=== PATIENT | male | born 1955 | race Caucasian/White ===

== ENCOUNTER → 2018-12-29 | Day surgery (SDC) | payer OTHER ==
[~2018-12-29] MED LIST: ASPIR 8181 MG PO; ATORVASTATIN CA20 MG PO; FENOFIBRATE145 MG PO; FENTANYL CITRATE/PF 100MCG/2 ML INJ ONE; GLIMEPIRIDE2 MG PO; GLUCAGON FOR INJ 1 MG VIAL ONE; HYOSCYAMINE SULFATE 0.5 MG/ML INJ ONE; JANUVIA100 MG PO; LISINOPRIL10 MG PO; METFORMIN HCL500 MG PO; MIDAZOLAM HCL 2 MG/2 ML VIAL ONE; PHENYLEPHRINE HCL 1% 10 MG/ML VIAL ONE; PROPOFOL IV EMULSION 10 MG/ML 50 ML VIAL ONE; TAMSULOSIN HCL0.4 MG PO
--- OUTSIDE RECORDS SUMMARY | 2018-12-29 06:47 | XMS REPORT | Continuity of Care Document ---
Author Author Franklyn ralph Organization Interface Address Unknown Phone Unavailable Problems Problem Status Onset Date Classification Date Reported Comments Source R52 - PAIN, UNSPECIFIED Active 03/08/2018 [facility] Medications Medication Details Route Status Patient Instructions Ordering Provider Order Date Source Allergies, Adverse Reactions, Alerts Substance Category Reaction Severity Reaction type Status Date Reported Comments Source Immunizations Immunization Date Given Site Status Last Updated Comments Source Results Order Name Results Value Reference Range Date Interpretation Comments Source Prostate wo contrast MRI Prostate wo contrast MRI Test patient 03/08/2018 - - Read by: Rich Lopez MD Dictated Date/time: 03/08/18 15:26 Electronically Signed by: Rich Lopez MD 03/08/18 15:32 FINAL REPORT [facility] Prostate wo contrast MRI Prostate wo contrast MRI No contrast was administered. EXAM: MRI pelvis/prostate INDICATION: test patient. Recent urinary tract infection; urinary hesitation. COMPARISON: None. TECHNIQUE: TECHNIQUE: Multiplanar, multisequence acquisition of the prostate pre and post intravenous contrast, per the dynamic prostate protocol. FINDINGS: Image quality: Adequate Prostate: Size 4.1 x 3.4 x 4.3 cm, 30 mL. Transition and central zone: Several circumscribed nodules with heterogeneous T2 signal likely reflect glandular and stromal hyperplasia. A 1.5 cm nodule with high T2 and bandlike low T2 signal centrally is present at midline near the verumontanum. Peripheral Zone: A well marginated 0.6 cm nodule with very high T2 signal and mildly increased T1 signal is present at the mid gland. Scattered linear areas of low T2 signal are seen throughout the peripheral zone without appreciable restriction diffusion. Seminal vesicles: Intact. Extracapsular extension: None. Bladder: Intact. Lymph nodes: No bulky adenopathy. Bones: Intact marrow signal IMPRESSION: 1.5 cm and 0.6 cm nodules centrally in the prostate may reflect cystic lesions including utricle cyst, Mullerian duct cyst, ejaculatory duct cyst, or retention cyst; neoplasm is not completely excluded. Correlate with PSA. Urology consultation is advised. SL: [facility] 03/08/2018 - - Read by: Rich Lopez MD Dictated Date/time: 03/10/18 08:46 Electronically Signed by: Rich Lopez MD 03/10/18 08:53 FINAL REPORT - - Read by: Rich Lopez MD Dictated Date/time: 03/09/18 13:28 Electronically Signed by: Rich Lopez MD 03/09/18 14:00 FINAL REPORT [facility] Vital Signs Vital Sign Value Date Comments Source Encounters Location Location Details Encounter Type Encounter Number Reason For Visit Attending Provider ADM Date DC Date Status Source Procedures Procedure Code Date Perfomer Comments Source
[2018-12-29 11:15] VITALS: BP 129/75
--- NOTE | 2018-12-29 11:52 | Operative Report ---
DATE OF PROCEDURE: December 29, 2018 REFERRING PHYSICIAN: Dr. Nathaniel Ryan PROCEDURES PERFORMED 1. Esophagogastroduodenoscopy with biopsies. 2. Colonoscopy with polypectomy. INDICATIONS FOR EGD: Dyspepsia. INDICATIONS FOR COLONOSCOPY: Colorectal cancer screening. MEDICATION: Patient was done under MAC. Please see anesthesiologist's note. PROCEDURE: With the patient in the left lateral decubitus position, the flexible fiberoptic Olympus gastroscope was introduced into the esophagus under direct visualization without any difficulty. The epiglottis on the way in appeared somewhat granular. The scope was then advanced into the esophagus, and a minute nodule was noted just below the upper esophageal sphincter, and that was removed per the cold biopsy forceps. There was some patchy erythema noted in the distal esophagus. The GE junction was somewhat nodular and friable, and that was biopsied. The scope was then advanced with ease into the stomach, and mucosa overlying the antrum and the body revealed some patchy erythema and mild to moderate edema, and biopsies were obtained and sent to stain for H. pylori. Pylorus appeared to be of normal contour and shape. It was intubated with ease, and the scope was advanced all the way to the 2nd portion of the duodenum. The scope was then withdrawn slowly. Mucosa overlying the proximal 2nd portion and the duodenal bulb grossly appeared to be within normal limits. Biopsies were obtained to rule out sprue. The scope was then withdrawn back into the stomach and retroflexed. A minute polyp was noted in the fundus, and that was removed per the cold biopsy forceps. The scope was then straightened out. It was subsequently withdrawn. Patient tolerated the procedure well. IMPRESSION 1. Epiglottis somewhat granular. 2. Minute nodule just below the upper esophageal sphincter removed per cold biopsy forceps. 3. Distal esophagitis. 4. The gastroesophageal junction was somewhat nodular and friable, and that was biopsied. 5. Gastritis, biopsied. Biopsies sent to stain for H. pylori. 6. Minute polyp, fundus, removed per cold biopsy forceps. 7. Rule out sprue. PLAN: Follow up histology. Initiate Protonix 40 mg 1 p.o. q.a.m. a.c. Will obtain an ENT opinion regarding the epiglottis. The patient was then turned around. After adequate lubrication of the anal canal, a flexible fiberoptic Olympus colonoscope was inserted into the rectum with ease and advanced all the way to the cecum. It was then withdrawn slowly. The mucosa overlying the cecum, ascending colon and transverse colon appeared to be within normal limits. A large, sessile, polypoid lesion was noted in the proximal descending colon. It was partially resected per snare electrocautery, and the it was also hemoclipped and tattooed. Some diverticular disease was noted in the sigmoid colon. One polyp was snared from the rectum. The scope was then retroflexed into the distal rectum, and small internal hemorrhoids were noted, none of which was actively bleeding. The scope was then straightened out. It was subsequently withdrawn. Patient tolerated the procedure well. IMPRESSION 1. Large, sessile, polypoid mass, proximal descending colon, partially resected per snare electrocautery, tattooed and hemoclipped. 2. Diverticulosis. 3. Rectal polyp, snared. 4. Small internal hemorrhoids, none actively bleeding. PLAN: Follow up histology. Patient might benefit from a CT scan of the abdomen. Timing of followup colonoscopy pending pathology report. Job#: [id number] cc:NATHANIEL RYAN MD
== END | disposition home or self-care (01) ==
LOC: OR 06:44
PROVIDERS: ATTEND Internal Medicine Gastroenterology
DX: K62.5 Hemorrhage of anus and rectum (principal); D12.4 Benign neoplasm of descending colon; K62.1 Rectal polyp; K31.7 Polyp of stomach and duodenum; K29.50 Unspecified chronic gastritis without bleeding; K29.80 Duodenitis without bleeding; K22.8 Other specified diseases of esophagus; K20.9 Esophagitis, unspecified; K57.30 Diverticulosis of large intestine without perforation or abscess without bleeding; K64.8 Other hemorrhoids; I10 Essential (primary) hypertension; E78.5 Hyperlipidemia, unspecified; E11.9 Type 2 diabetes mellitus without complications; I45.10 Unspecified right bundle-branch block; Z88.0 Allergy status to penicillin; Z01.810 Encounter for preprocedural cardiovascular examination; Z79.82 Long term (current) use of aspirin; Z79.84 Long term (current) use of oral hypoglycemic drugs; Z87.891 Personal history of nicotine dependence
CPT/HCPCS: 36415; 43239; 45381; 45385; 82948; 93005; J1610; J1980; J2250; J2370; J2704; 45378; 45384

== ENCOUNTER → 2019-01-26 | Outpatient (CLI) | payer OTHER ==
[~2019-01-26] MED LIST changes: -FENTANYL CITRATE/PF 100MCG/2 ML INJ ONE; -GLUCAGON FOR INJ 1 MG VIAL ONE; -HYOSCYAMINE SULFATE 0.5 MG/ML INJ ONE; +IOPAMIDOL 370 MG/ML 200 ML INFUS..BTL INJ ONE; -MIDAZOLAM HCL 2 MG/2 ML VIAL ONE; -PHENYLEPHRINE HCL 1% 10 MG/ML VIAL ONE; -PROPOFOL IV EMULSION 10 MG/ML 50 ML VIAL ONE; +SODIUM CHLORIDE 0.9% 50ML 50 ML ONE
[2019-01-26 10:02] LABS: BLOOD UREA NITROGEN 11 mg/dL (7-26); BUN/CREATININE RATIO 11 (6-25); CREATININE, SERUM 1.03 mg/dL (0.72-1.25); EST GLOMERULAR FILTRATION RATE > 60 ML/MIN (60-)
--- NOTE | 2019-01-26 11:02 | Diagnostic Imaging Report ---
EXAM: CT Abdomen and Pelvis WITH contrast INDICATION: Colon polyps COMPARISON: None. TECHNIQUE: Abdomen and pelvis were scanned utilizing a multidetector helical scanner from the lung base to the pubic symphysis after administration of IV contrast. Coronal and sagittal reformations were obtained. Routine protocol was performed. Scan was performed when during portal venous phase. Dose modulation, iterative reconstruction, and/or weight based adjustment of the mA/kV was utilized to reduce the radiation dose to as low as reasonably achievable. IV CONTRAST: 100 mL of Isovue-370 ORAL CONTRAST: 900 cc water RADIATION DOSE: Total DLP: 509.30 mGy*cm Estimated effective dose: (DLP x 0.015 x size factor) mSv COMPLICATIONS: None FINDINGS: LINES and TUBES: None. LOWER THORAX: Lung bases clear. Heart size normal. HEPATOBILIARY: Diffuse low density of the hepatic parenchyma which may be seen with steatosis. No focal hepatic lesions. No biliary ductal dilation. GALLBLADDER: No radio-opaque stones or sludge. No wall thickening. SPLEEN: No splenomegaly. PANCREAS: No focal masses or ductal dilatation. There are small calcifications near the junction of the body and tail of the pancreas. These may be related to the pancreatic duct. ADRENALS: No adrenal nodules KIDNEYS/URETERS: Kidneys enhance symmetrically. There is nonspecific perinephric stranding bilaterally. No hydronephrosis. No cystic or solid mass lesions. No stones. GI TRACT: No abnormal distention, wall thickening, or evidence of bowel obstruction. Sigmoid diverticulosis with no CT evidence for acute diverticulitis. There is a rounded 1.0 cm filling defect in the mid descending colon which is of uncertain significance. There is a metallic density, possible surgical clip, in the lumen of the splenic flexure of the colon. Appendix is normal. PELVIC ORGANS/BLADDER: Urinary bladder is decompressed and appears unremarkable. No discrete abnormal mass or fluid collection in the pelvis. LYMPH NODES: No dominant lymph node mass is seen in the abdomen, retroperitoneum or pelvis. VESSELS: Aortoiliac vessels are atherosclerotic with scattered calcified plaques. No aneurysm or dissection. IVC and portal system unremarkable. PERITONEUM / RETROPERITONEUM: No pneumoperitoneum or ascites. BONES: No acute or suspicious bony lesions. There are degenerative changes in the lumbar spine. SOFT TISSUES: Superficial surrounding soft tissue shows a left inguinal hernia containing fat. IMPRESSION: 1. No CT evidence for acute abdominal or pelvic pathology. 2. There is a questionable 1.0 cm filling defect in the mid descending colon, which may represent stool, accentuated wall due to lack of distention, or less likely colon polyp. There is a surgical clip in the splenic flexure of the colon. 3. There are calcifications in the midportion of the pancreas, likely related to the pancreatic duct. These are of indeterminate significance and may be further characterized with pancreatic protocol MRI. 4. Hepatic steatosis. Sigmoid diverticulosis with no CT evidence for acute diverticulitis. Staff: Alva Signed by: Dr. William Calle M.D. on 01/26/2019 10:59 AM
== END ==
LOC: CT 09:22
PROVIDERS: ATTEND Internal Medicine Gastroenterology
DX: D12.4 Benign neoplasm of descending colon (principal)
CPT/HCPCS: 36415; 74177; 82565; 84520; Q9967

== ENCOUNTER → 2019-02-26 | Day surgery (SDC) | payer OTHER ==
[~2019-02-26] MED LIST changes: +FENTANYL CITRATE/PF 100MCG/2 ML INJ ONE; +HYOSCYAMINE SULFATE 0.5 MG/ML INJ ONE; -IOPAMIDOL 370 MG/ML 200 ML INFUS..BTL INJ ONE; +MIDAZOLAM HCL 2 MG/2 ML VIAL ONE; +PANTOPRAZOLE SO40 MG PO; +PROPOFOL IV EMULSION 10 MG/ML 50 ML VIAL ONE; -SODIUM CHLORIDE 0.9% 50ML 50 ML ONE
--- OUTSIDE RECORDS SUMMARY | 2019-02-26 09:50 | XMS REPORT ---
Author [facility] Address Unknown Phone Unavailable Care Team Providers Care [employer] Name Role Phone MILANA DELACRUZ Unavailable Unavailable Problems This patient has no known problems. Allergies, Adverse Reactions, Alerts This patient has no known allergies or adverse reactions. Medications This patient has no known medications. Results Test Description Test Time Test Comments Text Results Atomic Results Result Comments CT ABDOMEN/PELVIS W 2019-01-26 10:37:00 [facility] [address] [place] [address] Patient Name: ALEKSEY MCDOWELL MR #: [id number] : 1955 Age/Sex: 63/M Req #: [id number] Adm Physician: Ordered by: MILANA DELACRUZ MD Report #: [id number] Location: CT Room/Bed: Procedure: [id number] CT/CT ABDOMEN/PELVIS W Exam Date: 01/26/19 Exam Time: 1010 REPORT STATUS: Signed EXAM: CT Abdomen and Pelvis WITH contrast INDICATI ON: Colon polyps COMPARISON: None. TECHNIQUE: Abdomen and pelvis were scanned utilizing a multidetector helical scanner from the lung base to the pubic symphysis after administration of IV contrast. Coronal and sagittal reformations were obtained. Routine protocol was performed. Scan was performed when during portal venous phase. Dose modulation, iterative reconstruction, and/or weight based adjustment of the mA/kV was utilized to reduce the radiation dose to as low as reasonably achievable. IV CONTRAST: 100 mL of Isovue-370 ORAL CONTRAST: 900 cc water RADIATION DOSE: Total DLP: 509.30 mGy*cm Estimated effective dose: (DLP x 0.015 x size factor) mSv COMPLICATIONS: None FINDINGS: LINES and TUBES: None. LOWER THORAX: Lung bases clear. Heart size normal. HEPATOBILIARY: Diffuse low density of the hepatic parenchyma which may be seen with steatosis. No focal hepatic lesions. No biliary ductal dilation. GALLBLADDER: No radio-opaque stones or sludge. No wall thickening. SPLEEN: No splenomegaly. PANCREAS: No focal masses or ductal dilatation. There are small calcifications near the junction of the body and tail of the pancreas. These may be related to the pancreatic duct. ADRENALS: No adrenal nodules KIDNEYS/URETERS: Kidneys enhance symmetrically. There is nonspecific perinephric stranding bilaterally. No hydronephrosis. No cystic or solid mass lesions. No stones. GI TRACT: No abnormal distention, wall thickening, or evidence of bowel obstruction. Sigmoid diverticulosis with no CT evidence for acute diverticulitis. There is a rounded 1.0 cm filling defect in the mid descending colon which is of uncertain significance. There is a metallic density, possible surgical clip, in the lumen of the splenic flexure of the colon. Appendix is normal. PELVIC ORGANS/BLADDER: Urinary bladder is decompressed and appears unremarkab le. No discrete abnormal mass or fluid collection in the pelvis. LYMPH NODES: No dominant lymph node mass is seen in the abdomen, retroperitoneum or pelvis. VESSELS: Aortoiliac vessels are atherosclerotic with scattered calcified plaques. No aneurysm or dissection. IVC and portal system unremarkable. PERITONEUM / RETROPERITONEUM: No pneumoperitoneum or ascites. BONES: No acute or suspicious bony lesions. There are degenerative changes in the lumbar spine. SOFT TISSUES: Superficial surrounding soft tissue shows a left inguinal hernia containing fat. IMPRESSION: 1. No CT evidence for acute abdominal or pelvic pathology. 2. There is a questionable 1.0 cm filling defect in the mid descending colon, which may represent stool, accentuated wall due to lack of distention, or less likely colon polyp. There is a surgical clip in the splenic flexure of the colon. 3. There are calcifications in the midportion of the pancreas, likely related to the pancreatic duct. These are of indeterminate significance and may be further characterized with pancreatic protocol MRI. 4. Hepatic steatosis. Sigmoid diverticulosis with no CT evidence for acute diverticulitis. Staff: Alva Signed by: Dr. Yuri Wild M.D. on 01/26/2019 10:59 AM Dictated By: YURI WILD MD 105 COPY TO: MILANA DELACRUZ MD
[2019-02-26 14:30] VITALS: BP 123/81
--- NOTE | 2019-02-26 19:19 | Operative Report ---
DATE OF PROCEDURE: 02/26/2019 SURGEON: Jesus Ledezma MD PROCEDURE: Colonoscopy with polypectomy. INDICATIONS FOR COLONOSCOPY: History of large adenoma descending colon, partially resected in the recent past. The patient is in for followup colonoscopy to remove any residual polypoid tissue. MEDICATIONS: The patient was done under MAC, please see anesthesiologist's note. PROCEDURE IN DETAIL: With the patient in left lateral decubitus position, flexible fiberoptic Olympus colonoscope was inserted into the rectum with ease and advanced all the way to approximately 50 cm from the incisors. The previously described polypectomy site was noted. The residual polypoid tissue was removed per piecemeal electrocautery. Site was hemoclipped x3 to prevent perforation. The scope was then withdrawn slowly. An additional minute polyp was noted in the descending colon that was hot biopsied. Diverticular disease was noted in the sigmoid colon. One minute polyp was noted in the rectum that was hot biopsied. The scope was then retroflexed into the distal rectum and small internal hemorrhoids were noted, none of which was actively bleeding. The scope was then straightened out, it was subsequently withdrawn. The patient tolerated the procedure well. IMPRESSION: 1. Residual polypoid tissue removed per piecemeal electrocautery and hemoclipped x3 to prevent perforation. 2. Descending colon polyp, minute, hot biopsied. 3. Diverticulosis. 4. Rectal polyp, minute, hot biopsied. 5. Internal hemorrhoids, none actively bleeding. PLAN: Follow up histology. Resected residual polypoid tissue shows no malignancy, then a followup colonoscopy in one year is in order. Jesus Ledezma MD [facility] /[id number] cc: Nathaniel Torres MD
== END | disposition home or self-care (01) ==
LOC: OR 09:48
PROVIDERS: ATTEND Internal Medicine Gastroenterology
DX: Z09 Encounter for follow-up examination after completed treatment for conditions other than malignant neoplasm (principal); D12.4 Benign neoplasm of descending colon; K62.1 Rectal polyp; K57.30 Diverticulosis of large intestine without perforation or abscess without bleeding; K64.8 Other hemorrhoids; I10 Essential (primary) hypertension; E78.5 Hyperlipidemia, unspecified; E11.9 Type 2 diabetes mellitus without complications; I45.10 Unspecified right bundle-branch block; Z88.0 Allergy status to penicillin; Z79.82 Long term (current) use of aspirin; Z79.84 Long term (current) use of oral hypoglycemic drugs
CPT/HCPCS: 36415; 45384; 45388; 82948; J1980; J2250; J2704; 45378; 45385